=== PATIENT | female | born 1965 | race Hispanic/Latino ===

== ENCOUNTER 2018-02-09 10:57 | Observation (INO) | payer SELFPAY ==
[2018-02-09] MEDS ORDERED: Acetaminophen 500 MG TAB ONE (11:42)
[2018-02-09] MEDS ORDERED: diphenhydrAMINE 50 MG/ML VIAL ONE (11:42)
[2018-02-09] MEDS ORDERED: Metoclopramide HCl 10 MG TAB ONE (11:42)
--- NOTE | 2018-02-09 11:48 | CT ---
CT BRAIN NONCONTRAST: HISTORY: A 52-year-old female with headache. FINDINGS: There is no midline shift or any other mass effect. There is no evidence of acute intracranial hemor rhage, large cortical infarct, obstructive hydrocephalus, or extraaxial fluid collection. The calvar ium is intact. IMPRESSION: No acute intracranial findings. jn [] POS: ROCCO
[2018-02-09 11:50] LABS: #Eosinphils 0.1 thou/uL (0.0-0.7); #Lymphocytes 2.7 thou/uL (1.20-3.40); #Monocytes 0.4 thou/uL (0.11-0.59); #Neutrophils 5.4 thou/uL (1.40-6.50); %Basophils 0.4 % (0.0-1.0); %Eosinophils 0.7 % (0.0-10.0); %Lymphocytes 31.3 % (21.0-51.0); %Monocytes 4.7 % (0.0-10.0); %Neutrophils 62.9 % (42.0-75.0); Hemoglobin 13.2 g/dL (12.0-16.0); Mean Corpuscular HGB CONC 34.5 g/dL (32.0-36.0); Mean Corpuscular Hemoglobin 30.6 pg (27.0-31.0); Mean Corpuscular Volume 88.7 fl (81.0-99.0); Mean Platelet Volume 6.4 fL (7.4-10.4); Platelet Count 221 thou/uL (130-400); RBC Distribution Width 11.8 % (11.5-14.5); White Blood Cell (WBC) Count 8.6 thou/uL (4.8-10.8)
--- NOTE | 2018-02-09 11:51 | RAD ---
RADIOGRAPH CHEST 1 VIEW: DATE: 02/09/18 HISTORY: 52-year-old female with acute chest pain. FINDINGS: There are no air space densities, pulmonary edema, pneumothorax, or cardiomegaly. The lateral costop hrenic angles are sharp. IMPRESSION: No acute cardiopulmonary findings. angelica [] POS: ROCCO
[2018-02-09 12:13] LABS: ALT (SGPT) 26 U/L (8-55); AST (SGOT) 30 U/L (5-34); Albumin 4.1 g/dL (3.5-5.0); Alkaline Phosphatase 103 U/L (40-150); Anion Gap 14 mmol/L (10-20); BUN (Urea Nitrogen) 16 mg/dL (9.8-20.1); Bilirubin, Total 0.4 mg/dL (0.2-1.2); CK (CPK) 40 U/L (29-168); Calc. Creatinine Clearance 0 mL/min (70-130); Calcium 9.8 mg/dL (7.8-10.44); Carbon Dioxide 27 mmol/L (22-29); Chloride 101 mmol/L (98-107); Estimated GFR-MDRD 75; Globulin 2.8 g/dL (2.4-3.5); Glucose 167 mg/dL (70-105); Protein, Total 6.9 g/dL (6.0-8.3); Sodium 138 mmol/L (136-145)
[2018-02-09 12:15] LABS: CKMB 0.8 ng/mL (0-6.6); Troponin I Less than 0.010 ng/mL (< 0.028)
--- NOTE | 2018-02-09 13:57 | HP ---
PRIMARY CARE PHYSICIAN: [facility], [place]. REASON FOR ADMISSION: Headache and chest pain. HISTORY OF PRESENT ILLNESS: A 52-year-old female who has underlying history of diabetes typ e 2, hypertension, dyslipidemia, who came to emergency room with complaint of chest pain and headache . The patient reports that she has headache on and off for a long period of time, but it gets better with [id number]-[id number] medication. This time, she was having severe headache for the last 3 days. H er description of headache is throbbing in nature, occipital and frontal parietal region, constant he adache without any exacerbation or relieving factor. At this time, pain medicine was not working. T he patient tired with the headache and that is why she decided to come to the emergency room for eval uation. In the emergency room, she had CT brain which was normal. The patient was given Tylenol Ext ra Strength, Reglan, Benadryl 25 mg, and IV fluid. Subsequently, she felt better. She did not have any focal motor or sensory symptoms. She did not have any diplopia or blurred vision. She did not h ave any associated nausea or vomiting. 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 She denies wo rst headache of her life. She denies any trauma. She denies any fever or chills. She denies any ne ck pain. The patient also reports that this morning, the patient was having left-sided chest pain which was no t radiating, associated with nausea, but no vomiting. She denies any shortness of breath, but she fe lt dizziness and lightheadedness. Her pain intensity was about 9/10 in intensity and that is why she was concerned about and decided to come to emergency room for evaluation. In the emergency room, merna had routine blood test, which was unremarkable including cardiac enzymes. Chest x-ray and echocard iogram was unremarkable. Patient never had any stress test done in the past. The patient has variou s risk factors for coronary artery disease and that is why we decided to keep this patient in [facility] for acute chest pain evaluation. Patient denies any pleuritic chest pain. She denies any cough. She denies any flu-like illness. e denies any UTI symptoms. She denies any constipation, diarrhea, melena or hematochezia. She denie s any orthopnea, PND or leg swelling. ALLERGIES: SHRUTHI INHIBITOR. CURRENT HOME MEDICATIONS: Glipizide 10 mg p.o. daily, metformin 500 mg p.o. b.i.d., Lipitor 10 mg p. o. at bedtime, Levemir 10 units subcu daily, aspirin 81 mg p.o. daily, hydrochlorothiazide 12.5 mg p. o. daily, and amitriptyline 10 mg p.o. at bedtime. REVIEW OF SYSTEMS: The following complete review of systems was negative, unless otherwise mentioned in the HPI or below: Constitutional: Weight loss or gain, ability to conduct usual activities. Sk in: Rash, itching. Eyes: Double vision, pain. ENT/Mouth: Nose bleeding, neck stiffness, pain, te nderness. Cardiovascular: Palpitations, dyspnea on exertion, orthopnea. Respiratory: Shortness of breath, wheezing, cough, hemoptysis, fever or night sweats. Gastrointestinal: Poor appetite, abdom inal pain, heartburn, nausea, vomiting, constipation, or diarrhea. Genitourinary: Urgency, frequenc y, dysuria, nocturia. Musculoskeletal: Pain, swelling. Neurologic/Psychiatric: Anxiety, depressio n. Allergy/Immunologic: Skin rash, bleeding tendency. Please see my HPI for pertinent positive and negative. All other review of systems reviewed and nega tive except as mentioned in the HPI. PAST MEDICAL HISTORY: Diabetes type 2, hypertension, dyslipidemia, peripheral neuropathy, cervical s pine degenerative disease. PAST PSYCHIATRIC HISTORY: Anxiety and depression. PAST SURGICAL HISTORY: Cholecystectomy, hysterectomy. FAMILY HISTORY: No strong family history of premature coronary artery disease, stroke or cancer. SOCIAL HISTORY: Patient lives at home. No history of tobacco, alcohol or illicit drug abuse. EMERGENCY ROOM COURSE: Patient is given Benadryl 25 mg, Tylenol 1 g, Reglan 10 mg, aspirin 324 mg an d 1 liter IV fluid. PHYSICAL EXAMINATION: VITAL SIGNS: Currently, blood pressure 137/80, pulse 93, respiratory rate 18, temperature 98.4, satu ration 99% on room air, and weight 102 kilograms. GENERAL: Patient is currently alert, awake, no obvious acute distress. HEENT: Normocephalic, atraumatic. Eyes: Pupils round, reactive to light. Extraocular muscle intac t. ENT: Oropharynx within normal limits. Moist mucous membranes. No oral lesion, no pharyngeal erythe ma, no exudate. NECK: Supple, no JVD, no thyromegaly, no carotid bruit, no jugular venous distention. LUNGS: Clear to auscultation without any rhonchi or rales. CARDIAC: S1, S2 regular without any murmur. ABDOMEN: Obesity present. Bowel sounds present, nontender, nondistended. No organomegaly, no mass, no suprapubic tenderness. BACK: Unremarkable, no CVA tenderness. EXTREMITIES: Upper extremity passive movement of all joints are normal. Lower extremities: No seth a. Good peripheral pulsation. SKIN: No skin rash. HEMATOLOGICAL SYSTEM: No lymphadenopathy. PSYCHIATRIC: Normal affect. SIGNIFICANT LABORATORY DATA: EKG showing normal sinus rhythm without any ischemic changes. CT brain based on my review, no acute intracranial process. Chest x-ray based on my review, no acute cardiop ulmonary process. CBC: WBC 8.6, hemoglobin 13.2, platelet 221, glucose 174. Sodium 138, potassium 4.0, chloride 104.1, carbon dioxide 27, anion gap 14, BUN 16, creatinine 0.80, glucose 167, calcium 9 .8. LFT: Total protein 6.9, albumin 4.1, alkaline phosphatase is 103, AST 30, ALT 26. Cardiac enzy mes negative. ASSESSMENT AND PLAN: 1. Headache, unexplained, suspecting migraine headache. Currently, CT brain is negative. This rodrigo ent does not have any alarming feature on history, does not need any further evaluation. I advised t his patient to follow up with Neurology as an outpatient basis. While in hospital, we will control h er headache with Toradol 15 mg IV q.6 hourly p.r.n. basis. 2. Chest pain. Patient's chest pain description is atypical. She has various risk factors for megan nary artery disease and probability of coronary artery disease is mild to moderate. She never had an y workup for cardiac etiology and that is why we will perform exercise Cardiolite stress test tomorro w morning. We will check lipid profile for risk stratification. We will avoid nitro patch to preven t headache. We will continue aspirin 325 mg p.o. daily. We will monitor on telemetry floor. 3. Diabetes type 2. We will continue glipizide 10 mg p.o. daily, metformin 500 mg p.o. b.i.d., Donita july insulin 10 units subcu daily. Diabetic diet will be given and insulin as per sliding scale taylor col. 4. Dyslipidemia. Check lipid profile tomorrow and continue Lipitor 10 mg p.o. at bedtime. 5. Hypertension. Continue hydrochlorothiazide 12.5 mg p.o. daily. Monitor on telemetry floor and a djust blood pressure medication. 6. Anxiety and depression. Continue amitriptyline 10 mg p.o. at bedtime. 7. Obesity. Dietary education given, weight loss education given. Healthy lifestyle measures discu ssed with the patient. 8. Deep venous thrombosis prophylaxis not needed because we are expecting discharge in 24 hours. 9. Gastrointestinal prophylaxis, Pepcid 20 mg p.o. b.i.d. 10. CODE STATUS: The patient is FULL CODE. The patient does not have any surrogate decision maker. She is making her decision by herself. Disposition plan based on stress test result likely within 24 hours. Plan of care discussed with the patient in detail.
[2018-02-09] MEDS ORDERED: Ondansetron ODT 4 MG TAB PO PRN (14:18)
[2018-02-09] MEDS ORDERED: Diabetic Tussin 200 MG/10 ML UDCUP PO PRN (14:18)
[2018-02-09] MEDS ORDERED: hydrALAZINE 20 MG/ML VIAL SLOW IVP PRN (14:18)
[2018-02-09] MEDS ORDERED: Nitroglycerin 2% Ointment 1 INCH/1 GM Packet TOP SCH ×2 (14:18→14:45)
[2018-02-09] MEDS ORDERED: Sodium Chloride 0.65% Nasal 44 ML BOT EA NARE PRN (14:18)
[2018-02-09] MEDS ORDERED: Ketorolac Tromethamine 30 MG/ML VIAL IVP PRN (14:18)
[2018-02-09] MEDS ORDERED: Senokot 8.6 MG TAB PO PRN (14:18)
[2018-02-09] MEDS ORDERED: HumaLOG 300 UNITS/3 ML VIAL SC PRN ×2 (14:18)
[2018-02-09] MEDS ORDERED: Dextrose 5% in Water 1,000 ML IV PRN (14:18)
[2018-02-09] MEDS ORDERED: Eucerin (Mineral Oil/Petrolatum,White) 30 gm Jar TOP PRN (14:18)
[2018-02-09] MEDS ORDERED: Mag-Al 1200 mg/1200 mg/30 ML UDCUP PO PRN (14:18)
[2018-02-09] MEDS ORDERED: Nitroglycerin 0.4 MG TAB (25 Tab Bottle) SL PRN (14:18)
[2018-02-09] MEDS ORDERED: Loratadine 10 MG TAB PO PRN (14:18)
[2018-02-09] MEDS ORDERED: Artificial Tears 18 DROP/0.9 ML EA EYE PRN (14:18)
[2018-02-09] MEDS ORDERED: Ondansetron HCl/PF 4 MG/2 ML Vial IVP PRN (14:18)
[2018-02-09] MEDS ORDERED: Loperamide HCl 2 MG CAP PO PRN (14:18)
[2018-02-09] MEDS ORDERED: Milk Of Magnesia 30 ML UDCUP PO PRN (14:18)
[2018-02-09] MEDS ORDERED: Dextrose 50% Abboject 50 ML SYRINGE SLOW IVP PRN (14:18)
[2018-02-09] MEDS ORDERED: HYDROcodone/Acetaminophen 5/325 mg Tablet PO PRN (14:18)
[2018-02-09] MEDS ORDERED: Zolpidem Tartrate 5 MG TAB PO PRN (14:18)
[2018-02-09] MEDS ORDERED: Chloraseptic Spray 180 ml Bottle PO PRN (14:18)
[2018-02-09] MEDS ORDERED: Acetaminophen 325 MG TAB PO PRN (14:18)
[2018-02-09 15:03] VITALS: BMI 43.0
[2018-02-09 15:09] LABS: Troponin I Less than 0.010 ng/mL (< 0.028)
[2018-02-09] MEDS: metFORMIN 500 MG TAB PO SCH (16:43)
[2018-02-09 18:47] LABS: Troponin I Less than 0.010 ng/mL (< 0.028)
[2018-02-09] MEDS: Famotidine 20 MG TAB PO SCH (20:32)
[2018-02-09] MEDS ORDERED: Amitriptyline HCl 10 MG TAB PO SCH (21:00)
[2018-02-09] MEDS ORDERED: Atorvastatin Calcium 10 MG TAB PO SCH (21:00)
[2018-02-09] MEDS: Nitroglycerin 2% Ointment 1 INCH/1 GM Packet TOP SCH (21:44)
[2018-02-10 05:15] LABS: Cardiac Risk 5.1 (Less than 4.5)
[2018-02-10] MEDS: Nitroglycerin 2% Ointment 1 INCH/1 GM Packet TOP SCH (05:33)
[2018-02-10] MEDS ORDERED: Aspirin 325 MG TAB PO SCH (09:00)
[2018-02-10] MEDS ORDERED: Insulin Detemir 100 UNITS/ML 10 UNITS in Pre-Filled Syringe 1 EACH SC SCH (09:00)
[2018-02-10] MEDS ORDERED: Hydrochlorothiazide 25 MG TAB PO SCH (09:00)
[2018-02-10] MEDS: glipiZIDE 10 MG TAB PO SCH ×2 (09:50→13:15)
[2018-02-10] MEDS: metFORMIN 500 MG TAB PO SCH ×2 (09:51→13:16)
[2018-02-10] MEDS: Famotidine 20 MG TAB PO SCH (11:47)
[2018-02-10 12:03] VITALS: BP 128/71; TEMP 98
--- NOTE | 2018-02-10 12:50 | NM ---
NUCLEAR MEDICINE MYOCARDIAL PERFUSION STRESS STUDY: HISTORY: Chest pain, hypertension, diabetes, dyslipidemia. DOSE: 31.7 mCi of Technetium 99m Cardiolite. The patient was stressed using a Aldo protocol. Multiplanar and quantitative gated SPECT images obtained. FINDINGS: Images demonstrate no evidence of areas of significant perfusion abnormality to suggest myocardial is chemia. No significant evidence of perfusion abnormality is seen on the stress images. Ejection fra ction measures 61%. IMPRESSION: Normal myocardial perfusion study without evidence of myocardial ischemia seen. POS: ROCCO
--- NOTE | 2018-02-10 18:28 | DIS ---
DATE OF ADMISSION: 02/09/2018 DATE OF DISCHARGE: 02/10/2018 DISCHARGE DISPOSITION: Home. FOLLOWUP: 1. Follow up with primary care physician at [facility] in 1 week. 2. Follow up Neurology as outpatient for persistent headache. The patient was seen on the day of discharge. Denies any new complaints. No chest pain, shortness o f breath, palpitations. BRIEF HOSPITAL COURSE: The patient is a 52-year-old female with diabetes mellitus type 2, h ypertension and dyslipidemia who presented to the emergency room with chest discomfort along with wor sening of her chronic headaches. Please refer to the history and physical dated 02/09/2018 for furth er details. The patient was admitted to the hospital with a diagnosis of chest discomfort, rule out acute coronar y syndrome. Serial cardiac enzymes were normal. She underwent Cardiolite stress test that was negat pia for reversible ischemia. Due to persistent headache, a CT scan of the brain was done in the emergency room that was negative f or acute findings. The patient has been on amitriptyline on a chronic basis. She was advised to eit her increase the dose to 20 mg at bedtime for prevention of the migraine headaches. She was also adv ised to follow up with Neurology as outpatient. No changes in her medications were performed. FINAL DIAGNOSES: 1. Chest discomfort, acute coronary artery syndrome ruled out. 2. Persistent headache, suspected to be migraine headaches. 3. Diabetes mellitus type 2. 4. Dyslipidemia. 5. Hypertension. 6. Anxiety and depression. 7. Morbid obesity with a BMI of 43. 8. Chronic kidney disease stage 2. SIGNIFICANT LABORATORIES: 1. Troponin negative. 2. Triglyceride 234 with cholesterol 137, LDL 63, HDL 27. Plan of care was discussed with the patient in detail. She stated understanding.
== END 2018-02-10 14:50 | disposition home or self-care (01) ==
LOC: ERS 10:57 → 2SW 14:00
PROVIDERS: ADMIT Internal Medicine; ATTEND Internal Medicine
DX: R07.89 Other chest pain (principal); R51 Headache; E78.5 Hyperlipidemia, unspecified; F41.8 Other specified anxiety disorders; I12.9 Hypertensive chronic kidney disease with stage 1 through stage 4 chronic kidney disease, or unspecified chronic kidney disease; E11.22 Type 2 diabetes mellitus with diabetic chronic kidney disease; N18.2 Chronic kidney disease, stage 2 (mild); E11.42 Type 2 diabetes mellitus with diabetic polyneuropathy; E66.01 Morbid (severe) obesity due to excess calories; Z68.43 Body mass index [BMI] 50.0-59.9, adult; Z79.4 Long term (current) use of insulin; Z79.82 Long term (current) use of aspirin; Z79.899 Other long term (current) drug therapy; Z88.8 Allergy status to other drugs, medicaments and biological substances
CPT/HCPCS: 36415; 36416; 70450; 71045; 78452; 80053; 80061; 82550; 82553; 83880; 84484; 85025; 93017; 96361; 96374; A4216; A9500; G0378; J1200; J1815

== ENCOUNTER 2018-11-22 10:44 | Emergency (ER) | payer SELFPAY | END 2018-11-22 12:15 | disposition home or self-care (01) | LOC: ERS 10:44 | DX: R22.31 Localized swelling, mass and lump, right upper limb (principal); G51.0 Bell's palsy; Z79.4 Long term (current) use of insulin; E11.40 Type 2 diabetes mellitus with diabetic neuropathy, unspecified; F41.9 Anxiety disorder, unspecified; F32.9 Major depressive disorder, single episode, unspecified | CPT/HCPCS: 99283 ==

== ENCOUNTER 2018-11-24 14:21 | Emergency (ER) | payer SELFPAY | END 2018-11-24 15:05 | disposition home or self-care (01) | LOC: ERS 14:21 | DX: L03.114 Cellulitis of left upper limb (principal); R22.31 Localized swelling, mass and lump, right upper limb; G51.0 Bell's palsy; F41.9 Anxiety disorder, unspecified; F32.9 Major depressive disorder, single episode, unspecified; E11.9 Type 2 diabetes mellitus without complications; Z79.4 Long term (current) use of insulin | CPT/HCPCS: 99283 ==

== ENCOUNTER 2018-11-28 10:56 | Outpatient (CLI) | payer OTHER ==
--- NOTE | 2018-11-28 12:24 | RAD ---
LEFT FOREARM 2 VIEWS: HISTORY: Left arm pain. FINDINGS: Radius and ulna are intact. No acute fracture, dislocation, soft tissue gas, or radiopaque foreign b odies are demonstrated. IMPRESSION: No significant abnormalities are demonstrated. POS: ROCCO
== END 2018-11-28 10:57 | disposition home or self-care (01) ==
LOC: BICRAD 10:56
PROVIDERS: ATTEND Nurse Practitioner Family
DX: M79.632 Pain in left forearm (principal)

== ENCOUNTER 2019-10-07 12:29 | Outpatient (CLI) | payer OTHER ==
--- NOTE | 2019-10-07 12:59 | RAD ---
Cervical spine 4 views flexion and extension HISTORY: Neck pain. FINDINGS: There is straightening of the normal lordotic curvature. Vertebral body heights are maintai mary. No malalignment. No abnormal translational motion upon flexion or extension. Osteophytosis of the lower vertebral bodi es and facets. IMPRESSION: Osseous degenerative changes lower cervical spine. No acute osseous abnormalities are dem onstrated.
--- NOTE | 2019-10-07 13:01 | RAD ---
Lumbar spine 4 views flexion and extension HISTORY: Low back pain. FINDINGS: There are 5 lumbar type vertebrae. Pedicles are intact. Vertebral body heights are maintain ed. Minimal degenerative spondylolisthesis at the L4-5 level that does not change upon flexion or extension. Osteophytosis throughout the vertebral bodies and facets, most pronounced at the lowest 2 levels. No acute fracture or dislocation. Multiple hemostasis clips over the lower retroperitoneum. [place] over the arterial structures. IMPRESSION: Osseous degenerative changes of lumbar spine. No acute osseous abnormalities are demonstr ated. Atherosclerosis.
== END 2019-10-07 12:30 | disposition home or self-care (01) ==
LOC: BICRAD 12:29
PROVIDERS: ATTEND Neurological Surgery
DX: M50.00 Cervical disc disorder with myelopathy, unspecified cervical region (principal); M54.5 Low back pain; M47.816 Spondylosis without myelopathy or radiculopathy, lumbar region; I70.90 Unspecified atherosclerosis; M47.12 Other spondylosis with myelopathy, cervical region
CPT/HCPCS: 72050; 72110

== ENCOUNTER 2019-11-13 12:10 | Outpatient (CLI) | payer OTHER ==
--- NOTE | 2019-11-13 13:07 | MRI ---
EXAM: MRI cervical spine without contrast HISTORY: Neck pain and radiculopathy COMPARISON: None TECHNIQUE: Multiplanar multisequence MR images were obtained of the cervical spine without contrast. FINDINGS: Generalized disc desiccation is seen. The vertebral bodies demonstrate normal height without fracture or subluxation. The visualized cord demonstrates normal signal throughout. The craniocervical junction is unremarkab le. The prevertebral soft tissues are unremarkable. No paraspinal soft tissue abnormality is seen. C2/3: No significant posterior bulge or protrusion. No posterior facet arthrosis. No central canal stenosis. No neural foraminal stenosis. C3/4: A small disc osteophyte complex. No posterior facet arthrosis. Mild central canal stenosis. Mild bilateral neural foraminal stenosis. C4/5: A moderate discussed by complex. No posterior facet arthrosis. Mild central canal stenosis. Mild bilateral neural foraminal stenosis. C5/6: A small disc osteophyte complex. No posterior facet arthrosis. Mild central canal stenosis. Mild right neural foraminal stenosis. C6/7: Moderate disc osteophyte complex. No posterior facet arthrosis. Mild central canal stenosis. Moderate bilateral neural foraminal stenosis. C7/T1: No significant posterior bulge or protrusion. No posterior facet arthrosis. No central canal stenosis. No neural foraminal stenosis. IMPRESSION: Degenerative changes of the cervical spine as above.
--- NOTE | 2019-11-13 13:35 | MRI ---
EXAM: MRI lumbar spine without contrast HISTORY: 54-year-old female with congenital spondylolisthesis and low back pain. COMPARISON: None TECHNIQUE: Multiple planar multisequence MR images were obtained of the lumbar spine without contrast . FINDINGS: The vertebral bodies and intervertebral discs demonstrate normal height and alignment without fractur e or subluxation. Generalized disc desiccation is seen. The prevertebral and paraspinal soft tissues are unremarkable. No marrow signal abnormality is present. The conus medullaris terminates normally at T12/L1. T12/L1: No significant posterior bulge or protrusion. No posterior facet arthrosis. No central paxton l stenosis. No neural foraminal stenosis L1/2: No significant posterior bulge or protrusion. No posterior facet arthrosis. No central canal stenosis. No neural foraminal stenosis L2/3: No significant posterior bulge or protrusion. No posterior facet arthrosis. No central canal stenosis. No neural foraminal stenosis L3/4: A small generalized concentric disc bulge. No posterior facet arthrosis. No central canal jose nosis. Moderate right and mild left neural foraminal stenosis L4/5: No significant posterior bulge or protrusion. Moderate bilateral posterior facet arthrosis. N o central canal stenosis. Moderate left neural foraminal stenosis L5/S1: Small generalized concentric disc bulge. Mild to moderate bilateral posterior facet arthrosis . Mild central canal stenosis. Mild to moderate bilateral neural foraminal stenosis IMPRESSION: Degenerative changes of lumbar spine as above.
== END 2019-11-13 12:11 | disposition home or self-care (01) ==
LOC: BICMRI 12:10
PROVIDERS: ATTEND Neurological Surgery
DX: M47.12 Other spondylosis with myelopathy, cervical region (principal); M50.00 Cervical disc disorder with myelopathy, unspecified cervical region; Q76.2 Congenital spondylolisthesis; M47.816 Spondylosis without myelopathy or radiculopathy, lumbar region; M47.22 Other spondylosis with radiculopathy, cervical region
CPT/HCPCS: 72141; 72148

== ENCOUNTER 2020-10-06 14:23 | Outpatient (CLI) | payer OTHER ==
--- NOTE | 2020-10-06 16:06 | RAD ---
LEFT HAND TWO VIEWS: 10/06/20 HISTORY: Left hand pain. There are mild arthritic changes of the hand. This included degenerative changes of the distal interp halangeal joint and some minimal changes of the metacarpophalangeal joint and some minimal changes of the metacarpophalangeal joints, also mild changes of the first carpometacarpal joint space. IMPRESSION: Mild arthritic changes of the hand. POS: AMBER
--- NOTE | 2020-10-06 16:08 | RAD ---
RIGHT HAND TWO VIEWS: 10/06/20 HISTORY: Hand pain. There is minimal arthritic changes noted. Some very early changes of some of the distal interphalange al joints and mild changes of the first carpometacarpal joint space. No fractures. No erosive change. IMPRESSION: Mild osteoarthritic changes of the hand. Some of the most pronounced changes are actually at the PIP joint of the ring finger. POS: AMBER
== END 2020-10-06 14:24 | disposition home or self-care (01) ==
LOC: BICRAD 14:23
PROVIDERS: ATTEND Family Medicine
DX: M79.641 Pain in right hand (principal); M79.642 Pain in left hand; G89.4 Chronic pain syndrome; M19.042 Primary osteoarthritis, left hand; M19.041 Primary osteoarthritis, right hand

== ENCOUNTER 2020-12-01 15:00 | Outpatient (CLI) | payer OTHER ==
--- NOTE | 2020-12-01 15:41 | BD ---
DEXA BONE DENSITY STUDY: HISTORY: Postmenopausal. FINDINGS: Exam: DEXA Bone Density Lumbar Spine: BMD (g/cm2) L1 1.026 T-Score: +0.3 L2 1.164 T-Score: +1.3 L3 1.063 T-Score: -0.2 L4 1.161 T-Score: +0.9 L1-L4 1.102 T-Score: +0.5 Femoral Neck: 0.861 T-Score: +0.1 Total Femur: 1.126 T-Score: +1.5 Impression: Normal bone mineral density of the lumbar spine and left femoral neck. POS: AMBER
--- NOTE | 2020-12-01 15:58 | MMO ---
Bilateral MAMMO Bilat Screen DDI. CLINICAL HISTORY: Patient is 55 years old and is seen for screening. The patient has the following family history of breast cancer: mother. The patient has a history of cervical cancer. VIEWS: The views performed were: bilateral craniocaudal and bilateral mediolateral oblique. FILMS COMPARED: The present examination has been compared to prior imaging studies performed at [facility] on 05/25/2016, 06/02/2016 and 06/14/2017. This study has been interpreted with the assistance of computer-aided detection. MAMMOGRAM FINDINGS: There are scattered fibroglandular densities. There is a stable intramammary lymph node seen in the central region of the left breast. There are no suspicious masses, suspicious calcifications, or new areas of architectural distortion. IMPRESSION: THERE IS NO MAMMOGRAPHIC EVIDENCE OF MALIGNANCY. A ROUTINE FOLLOW-UP MAMMOGRAM IN 1 YEAR IS RECOMMENDED. ACR BI-RADS Category 2 - Benign finding MAMMOGRAPHY NOTE: 1. A negative mammogram report should not delay a biopsy if a dominant of clinically suspicious mass is present. 2. Approximately 10% to 15% of breast cancers are not detected by mammography. 3. Adenosis and dense breasts may obscure an underlying neoplasm. Reported by: DRU QUINTANA MD Electonically Signed: [id number]
== END 2020-12-01 15:01 | disposition home or self-care (01) ==
LOC: BICMAMMO 15:00
PROVIDERS: ATTEND Registered Nurse
DX: Z12.31 Encounter for screening mammogram for malignant neoplasm of breast (principal); Z80.3 Family history of malignant neoplasm of breast; Z78.0 Asymptomatic menopausal state
CPT/HCPCS: 77067; 77080

== ENCOUNTER 2021-03-01 09:45 | Outpatient (CLI) | payer OTHER | END 2021-03-01 09:46 | disposition home or self-care (01) | LOC: DTY/OP 09:45 | PROVIDERS: ATTEND Surgery | DX: E11.9 Type 2 diabetes mellitus without complications (principal) | CPT/HCPCS: 97802 ==

== ENCOUNTER 2021-04-11 19:00 | Outpatient (CLI) | payer OTHER | END 2021-04-11 19:01 | disposition home or self-care (01) | LOC: SLEEPLAB 19:00 | PROVIDERS: ATTEND Registered Nurse | DX: G47.33 Obstructive sleep apnea (adult) (pediatric) (principal); R53.83 Other fatigue; E66.9 Obesity, unspecified; K21.9 Gastro-esophageal reflux disease without esophagitis; R06.83 Snoring; F32.9 Major depressive disorder, single episode, unspecified; I10 Essential (primary) hypertension; E11.9 Type 2 diabetes mellitus without complications; G47.00 Insomnia, unspecified; G47.10 Hypersomnia, unspecified; G47.52 REM sleep behavior disorder; Z68.36 Body mass index [BMI] 36.0-36.9, adult | CPT/HCPCS: 95810 ==

== ENCOUNTER 2021-04-14 19:00 | Outpatient (CLI) | payer OTHER | END 2021-04-14 19:01 | disposition home or self-care (01) | LOC: SLEEPLAB 19:00 | PROVIDERS: ATTEND Registered Nurse | DX: G47.33 Obstructive sleep apnea (adult) (pediatric) (principal); R53.83 Other fatigue; K21.9 Gastro-esophageal reflux disease without esophagitis; R06.83 Snoring; G47.10 Hypersomnia, unspecified; F32.9 Major depressive disorder, single episode, unspecified; E11.9 Type 2 diabetes mellitus without complications; I10 Essential (primary) hypertension; E66.9 Obesity, unspecified; Z68.36 Body mass index [BMI] 36.0-36.9, adult | CPT/HCPCS: 95811 ==

== ENCOUNTER 2021-04-16 10:34 | Emergency (ER) | payer OTHER | END 2021-04-16 12:15 | disposition home or self-care (01) | LOC: ERS 10:34 | DX: J34.0 Abscess, furuncle and carbuncle of nose (principal); E78.5 Hyperlipidemia, unspecified; E78.00 Pure hypercholesterolemia, unspecified; I10 Essential (primary) hypertension; E11.40 Type 2 diabetes mellitus with diabetic neuropathy, unspecified | CPT/HCPCS: 99283 ==

== ENCOUNTER 2021-05-04 12:47 | Outpatient (CLI) | payer OTHER | END 2021-05-04 12:48 | disposition home or self-care (01) | LOC: DTY/OP 12:47 | PROVIDERS: ATTEND Surgery | DX: E11.9 Type 2 diabetes mellitus without complications (principal) | CPT/HCPCS: 97802 ==

== ENCOUNTER 2021-08-04 11:48 | Outpatient (CLI) | payer MEDICARE, OTHER | END 2021-08-04 11:49 | disposition home or self-care (01) | LOC: DTY/OP 11:48 | PROVIDERS: ATTEND Surgery | DX: E11.9 Type 2 diabetes mellitus without complications (principal) | CPT/HCPCS: 97802 ==

== ENCOUNTER 2021-10-13 09:47 | Outpatient (CLI) | payer MEDICARE ==
[2021-10-13 11:46] LABS: Albumin 4.6 g/dL (3.5-5.0); Anion Gap 13 mmol/L (10-20); BUN (Urea Nitrogen) 34 mg/dL (9.8-20.1); Calc. Creatinine Clearance 0 mL/min (70-130); Calcium 9.7 mg/dL (7.8-10.44); Carbon Dioxide 29 mmol/L (22-29); Chloride 101 mmol/L (98-107); Glucose 189 mg/dL (70-105); Potassium 4.2 mmol/L (3.5-5.1); Sodium 139 mmol/L (136-145)
[2021-10-13 23:28] LABS: SARS-CoV-2 PCR by NAA Not Detected (NotDetected)
== END 2021-10-13 09:48 | disposition home or self-care (01) ==
LOC: LABBT 09:47
PROVIDERS: ATTEND Surgery
DX: Z01.818 Encounter for other preprocedural examination (principal); Z20.822 Contact with and (suspected) exposure to COVID-19
CPT/HCPCS: 80048; 82040; 93005; U0003; U0005; 93010

== ENCOUNTER 2021-10-13 10:15 | Inpatient (IN) | payer MEDICARE, OTHER ==
[2021-10-15 08:58] VITALS: BMI 37.4
[2021-10-18] MEDS ORDERED: Scopolamine 1.5 mg/72 hour Patch ONE (07:00)
[2021-10-18] MEDS ORDERED: cefOXitin Sodium/Dextrose 2 GM/50 ML BAG ONE (07:00)
[2021-10-18] MEDS ORDERED: Bupivacaine 0.25% 10 ML VIAL ONE (07:01)
[2021-10-18] MEDS ORDERED: Lidocaine 2% PF 5 ML VIAL ONE (07:01)
[2021-10-18] MEDS ORDERED: Enoxaparin Sodium 40 MG/0.4 ML SYRINGE ONE (07:01)
[2021-10-18] MEDS ORDERED: Lidocaine 1% w/Epinephrine 1:100K 30 ML VIAL ONE (07:02)
[2021-10-18] MEDS ORDERED: Famotidine/PF 20 mg/2ml Vial ONE (07:10)
[2021-10-18] MEDS ORDERED: Dextrose 50% Abboject 50 ML SYRINGE ONE (07:10)
[2021-10-18] MEDS ORDERED: Fentanyl 100 MCG/2 ML VIAL ONE ×3 (07:20→11:45)
[2021-10-18] MEDS ORDERED: SUGAMMADEX SODIUM 200 MG/2 ML VIAL ONE (07:21)
[2021-10-18] MEDS ORDERED: diphenhydrAMINE 50 MG/ML VIAL IVP PRN (07:23)
[2021-10-18] MEDS ORDERED: HumaLOG 300 UNITS/3 ML VIAL SC PRN (07:23)
[2021-10-18] MEDS ORDERED: Dextrose 50% Abboject 50 ML SYRINGE SLOW IVP PRN (07:23)
[2021-10-18] MEDS ORDERED: Promethazine HCl 25 MG/ML VIAL IM PRN ×2 (07:23→08:14)
[2021-10-18] MEDS ORDERED: hydrALAZINE 20 MG/ML VIAL SLOW IVP PRN (07:23)
[2021-10-18] MEDS ORDERED: Dextrose 5% in Water 1,000 ML IV PRN (07:23)
[2021-10-18] MEDS ORDERED: Succinylcholine 200 MG/10 ml SYRINGE FS ONE (07:40)
[2021-10-18] MEDS ORDERED: Ketorolac Tromethamine 30 MG/ML VIAL ONE (07:40)
[2021-10-18] MEDS ORDERED: Ondansetron PF 4 MG/2 ML Vial ONE (07:40)
[2021-10-18] MEDS ORDERED: Lidocaine 1% PF 5 ML VIAL ONE (07:40)
[2021-10-18] MEDS ORDERED: Phenylephrine 10 MG/ML VIAL ONE (07:40)
[2021-10-18] MEDS ORDERED: PROPOFOL 200 MG/20 ML VIAL ONE (07:40)
[2021-10-18] MEDS ORDERED: Rocuronium Bromide 10 MG/ML (10ML VIAL) ONE (07:40)
[2021-10-18] MEDS ORDERED: Albuterol 200 PUFF (6.7GM INHALER) INH PRN (08:02)
[2021-10-18] MEDS ORDERED: Promethazine HCl 25 MG/ML VIAL IVPB PRN (08:14)
[2021-10-18] MEDS ORDERED: Ondansetron HCl/PF 4 MG/2 ML Vial IVP PRN (08:14)
[2021-10-18] MEDS: Pantoprazole 40 MG VIAL IVP SCH (13:22)
[2021-10-18] MEDS: Pregabalin 75 MG CAP PO SCH ×2 (13:22→19:45)
[2021-10-18] MEDS: CeleCOXIB 100 MG CAP PO SCH ×2 (13:22→19:44)
[2021-10-18] MEDS: Morphine 4 MG/ML VIAL SLOW IVP PRN ×2 (14:08→19:46)
[2021-10-18] MEDS: Ondansetron PF 4 MG/2 ML Vial IVP PRN (14:08)
[2021-10-18] MEDS: D5 1/2 NS w/20 mEq KCL 1,000 ML IV SCH ×4 (14:10→22:30)
[2021-10-18] MEDS: DULoxetine 30 MG CAP PO SCH (14:18)
[2021-10-18] MEDS: Enoxaparin Sodium 40 MG/0.4 ML SYRINGE SC SCH (16:26)
[2021-10-19] MEDS: Hydrocodone-Acetamin 15 ML UDCUP PO PRN ×2 (05:36→10:29)
[2021-10-19 06:13] LABS: #Lymphocytes 1.8 thou/uL (1.20-3.40); #Monocytes 0.6 thou/uL (0.11-0.59); #Neutrophils 8.6 thou/uL (1.40-6.50); %Basophils 0.3 % (0.0-1.0); %Eosinophils 0.3 % (0.0-10.0); %Lymphocytes 16.5 % (21.0-51.0); Mean Corpuscular HGB CONC 32.6 g/dL (32.0-36.0); Mean Corpuscular Hemoglobin 30.1 pg (27.0-31.0); Mean Corpuscular Volume 92.2 fL (78.0-98.0); Mean Platelet Volume 7.8 fL (7.4-10.4); Platelet Count 138 thou/uL (130-400); RBC Distribution Width 12.6 % (11.5-14.5); Red Blood Cell (RBC) Count 4.31 mill/uL (4.20-5.40)
[2021-10-19 06:26] LABS: Anion Gap 8 mmol/L (10-20); BUN (Urea Nitrogen) 16 mg/dL (9.8-20.1); Calc. Creatinine Clearance 136 mL/min (70-130); Calcium 8.5 mg/dL (7.8-10.44); Carbon Dioxide 29 mmol/L (22-29); Chloride 107 mmol/L (98-107); Potassium 3.9 mmol/L (3.5-5.1); Sodium 140 mmol/L (136-145)
[2021-10-19 06:28] LABS: Glucose 36 mg/dL (70-105)
[2021-10-19] MEDS: Enoxaparin Sodium 40 MG/0.4 ML SYRINGE SC SCH (08:09)
[2021-10-19] MEDS: Ondansetron PF 4 MG/2 ML Vial IVP PRN (08:09)
[2021-10-19] MEDS: Pantoprazole 40 MG VIAL IVP SCH (08:09)
[2021-10-19] MEDS: DULoxetine 30 MG CAP PO SCH (08:14)
[2021-10-19] MEDS: Pregabalin 75 MG CAP PO SCH ×2 (08:14→19:31)
[2021-10-19] MEDS: CeleCOXIB 100 MG CAP PO SCH ×2 (08:14→19:31)
[2021-10-19] MEDS ORDERED: Albuterol Sulfate 2.5 mg/3 ml Neb NEB PRN (15:30)
[2021-10-19] MEDS: D5 1/2 NS w/20 mEq KCL 1,000 ML IV SCH ×3 (15:38→20:53)
[2021-10-20] MEDS: CeleCOXIB 100 MG CAP PO SCH (08:54)
[2021-10-20] MEDS: Enoxaparin Sodium 40 MG/0.4 ML SYRINGE SC SCH (08:54)
[2021-10-20] MEDS: Pantoprazole 40 MG VIAL IVP SCH (08:54)
[2021-10-20] MEDS: DULoxetine 30 MG CAP PO SCH (08:54)
[2021-10-20] MEDS: Pregabalin 75 MG CAP PO SCH (08:55)
[2021-10-20 12:25] VITALS: BP 112/71; TEMP 98.6
== END 2021-10-20 14:40 | disposition home or self-care (01) | DRG 621 ==
LOC: SURG A 10-18 06:20
PROVIDERS: ADMIT Surgery; ATTEND Surgery
PROC: 0D164ZA Bypass Stomach to Jejunum, Percutaneous Endoscopic Approach (ICD-10-PCS; principal; 2021-10-18)
PROC: 0DNW4ZZ Release Peritoneum, Percutaneous Endoscopic Approach (ICD-10-PCS; 2021-10-18)
PROC: 0DJ08ZZ Inspection of Upper Intestinal Tract, Via Natural or Artificial Opening Endoscopic (ICD-10-PCS; 2021-10-18)
DX: E66.01 Morbid (severe) obesity due to excess calories (principal); E88.81 Metabolic syndrome and other insulin resistance; E16.2 Hypoglycemia, unspecified; Z68.37 Body mass index [BMI] 37.0-37.9, adult; Z90.710 Acquired absence of both cervix and uterus; Z90.49 Acquired absence of other specified parts of digestive tract
CPT/HCPCS: 36415; 36416; 80048; 85025; 94760; C9113; J0694; J1650; J1885; J2001; J2270; J2370; J2405; J2704; J3010; J3480; S0020; S0028

== ENCOUNTER 2021-12-01 13:10 | Emergency (ER) | payer MEDICARE, OTHER | END 2021-12-01 13:21 | disposition left against medical advice (07) | LOC: ERS 13:10 | DX: Z53.21 Procedure and treatment not carried out due to patient leaving prior to being seen by health care provider (principal) ==

== ENCOUNTER 2021-12-20 10:51 | Outpatient (CLI) | payer MEDICARE, MEDICAID | END 2021-12-20 10:52 | disposition home or self-care (01) | LOC: BICMAMMO 10:51 | PROVIDERS: ATTEND Registered Nurse | DX: Z12.31 Encounter for screening mammogram for malignant neoplasm of breast (principal); Z85.41 Personal history of malignant neoplasm of cervix uteri; Z80.3 Family history of malignant neoplasm of breast | CPT/HCPCS: 77063; 77067 ==